=== PATIENT | male | born 1980 | race Caucasian/White ===

== ENCOUNTER → 2017-09-19 | Outpatient (CLI) | payer BC ==
--- NOTE | 2017-09-19 18:19 | US ---
EXAMINATION TYPE: US abd limited kidneys/bladder DATE OF EXAM: 09/19/2017 COMPARISON: CT dated 06/05/2012 CLINICAL HISTORY: N18.4 Chronic kidney disease, stage 4 (severe). Pt states abnormal renal labs EXAM MEASUREMENTS: Liver Length: 13.9 cm Gallbladder Wall: 0.2 cm CBD: 0.3 cm Right Kidney: 10.9 x 5.3 x 5.7 cm Left Kidney: 10.4 x 5.0 x 5.5 cm Pancreas: Obscured by bowel gas Liver: wnl Gallbladder: wnl CBD: wnl Right Kidney: wnl Left Kidney: wnl Bladder: wnl Bilateral Jets Seen Yes Incidental finding, spleen upper limits of normal for size There is no ascites. Cortical medullary differentiation is maintained within the kidneys. No hydronep hrosis, mass, or pathologic calcification. IMPRESSION: Borderline splenomegaly.
== END | disposition home or self-care (01) ==
LOC: RADUSWWP 15:37
PROVIDERS: ATTEND Family Medicine
DX: N18.4 Chronic kidney disease, stage 4 (severe) (principal)
CPT/HCPCS: 76705; 76770

== ENCOUNTER → 2019-06-12 | Outpatient (CLI) | payer BC ==
--- NOTE | 2019-06-12 13:48 | CT ---
EXAMINATION TYPE: CT hand LT wo con DATE OF EXAM: 06/12/2019 COMPARISON: None HISTORY: Pain Lt Thumb CT DLP: 158.[address] of the left hand with reconstruction imaging. TECHNIQUE: Unenhanced CT of the left hand was performed with bone and soft tissue window settings sub mitted in the axial coronal and sagittal planes. At a separate workstation [id number] TR imaging was obtain ed. FINDINGS: I do not see evidence for fracture or dislocation. Joint spaces appear to be well preserved . There is no evidence for radiopaque foreign body. No bony destructive process is identified. No ero sive changes appreciated. IMPRESSION: 1. No evidence for fracture or dislocation.
== END | disposition home or self-care (01) ==
LOC: RADCTMAIN 13:11
PROVIDERS: ATTEND Family Medicine
DX: S63.602A Unspecified sprain of left thumb, initial encounter (principal)

== ENCOUNTER → 2020-01-27 | Outpatient (CLI) | payer BC ==
--- NOTE | 2020-01-27 11:22 | CT ---
EXAMINATION TYPE: CT sinus wo con DATE OF EXAM: 01/27/2020 COMPARISON: None HISTORY: Acute sinusitis, left side facial swelling CT DLP: 669 mGycm. Automated Exposure Control for Dose Reduction was Utilized. TECHNIQUE: CT scan of the sinuses is performed without contrast, axial images are obtained, coronal r eformatted images are also reviewed. FINDINGS: The paranasal sinuses show mucoperiosteal thickening in the maxillary sinuses bilaterally, punctate ossification present in the left maxillary sinus. The ostiomeatal complex is patent bilate rally on the coronal images. Delia bullosa present bilaterally. Visualized portion of mastoid air cells show no abnormal opacification. The globes are intact bilate rally, soft tissue swelling is noted in the preseptal location on the left. There is lucency within the right mandible posteriorly consistent with periapical abscess, periapical abscess also noted at f rontal maxilla on the left and on the right as well as more anteriorly on the right. IMPRESSION: Findings consistent with chronic sinusitis. Extensive dental decay. Swelling over the lef t orbit, consider cellulitis.
== END | disposition home or self-care (01) ==
LOC: RADCTMAIN 10:54
PROVIDERS: ATTEND Family Medicine
DX: J01.90 Acute sinusitis, unspecified (principal); K02.9 Dental caries, unspecified; H05.222 Edema of left orbit
CPT/HCPCS: 70486

== ENCOUNTER 2020-11-24 20:19 | Inpatient (IN) | payer BC ==
[2020-11-24] MEDS ORDERED: ONDANSETRON 4 MG/2 ML VIAL IVP STA (21:03)
[2020-11-24] MEDS ORDERED: MORPHINE SULFATE 4 MG/ML SYRINGE IV STA (21:03)
[2020-11-24] MEDS ORDERED: KETOROLAC 15 MG/ML 1 ML VIAL IVP STA (21:03)
[2020-11-24] MEDS ORDERED: SODIUM CHLORIDE 0.9% 1,000 ML IV STA (21:03)
--- NOTE | 2020-11-24 21:34 | XR ---
EXAMINATION TYPE: XR KUB DATE OF EXAM: 11/24/2020 9:27 PM CLINICAL HISTORY: Right flank pain TECHNIQUE: 2 upright views COMPARISON: 06/05/2012 FINDINGS: Scattered gas is seen in non-distended small bowel loops. Gas and fecal material is seen in non-distended colon. There is no visceromegaly, pneumoperitoneum, or abnormal calcification apprecia kim. The lung bases are clear and the osseous structures are intact. IMPRESSION: No acute radiographic process.
[2020-11-24 21:41] LABS: Basophils % (A) 0 %; Eosinophils # (A) 0.2 k/uL (0-0.7); Eosinophils % (A) 1 %; HCT 44.3 % (39.0-53.0); HGB 15.9 gm/dL (13.0-17.5); Lymphocytes % (A) 9 %; MCHC 35.8 g/dL (31.0-37.0); MCV 89.3 fL (80.0-100.0); Mean Platelet Volume 7.2; Monocytes # (A) 0.5 k/uL (0-1.0); Monocytes % (A) 5 %; Neutrophils # (A) 9.1 k/uL (1.3-7.7); Neutrophils % (A) 84 %; Platelet Count 204 k/uL (150-450); RBC 4.97 m/uL (4.30-5.90); RDW 12.3 % (11.5-15.5); WBC 10.8 k/uL (3.8-10.6)
[2020-11-24 21:46] LABS: Partial Thromboplastin Time 22.3 sec (22.0-30.0); Prothrombin Time 10.5 sec (9.0-12.0)
[2020-11-24 21:47] LABS: Albumin 4.5 g/dL (3.5-5.0); Total Bilirubin 0.5 mg/dL (0.2-1.3); Total Protein 7.3 g/dL (6.3-8.2)
--- NOTE | 2020-11-24 21:49 | ED ---
General Adult HPI - General Chief complaint: Abdominal Pain Stated complaint: Flank Pain Time Seen by Provider: 11/24/20 20:42 Source: patient, RN notes reviewed, old records reviewed Mode of arrival: ambulatory Limitations: no limitations - History of Present Illness Initial comments: 40-year-old male presenting with sudden onset right flank pain and upper abdominal pain. Patient had been working outside and initially thought this was musculoskeletal however it did not feel like his usual back pain. She states that over the past one week he's had some urinary frequency and urgency. No fever. He did vomit once at home after the onset of pain. No previous history of kidney stones. No chest pain. No scrotal pain. - Related Data Allergies Allergy/AdvReac Type Severity Reaction Status Date / Time shellfish derived Allergy Rash/Hives Verified 11/24/20 20:31 Review of Systems ROS Statement: Those systems with pertinent positive or pertinent negative responses have been documented in the HPI. ROS Other: All systems not noted in ROS Statement are negative. Past Medical History Past Medical History: No Reported History History of Any Multi-Drug Resistant Organisms: None Reported Past Surgical History: Orthopedic Surgery Smoking Status: Never smoker Past Alcohol Use History: None Reported Past Drug Use History: None Reported General Exam Limitations: no limitations General appearance: alert, in distress Head exam: Present: atraumatic, normocephalic Eye exam: Present: normal appearance, PERRL ENT exam: Present: normal exam Neck exam: Present: normal inspection. Absent: tenderness, meningismus Respiratory exam: Present: normal lung sounds bilaterally. Absent: respiratory distress, wheezes Cardiovascular Exam: Present: regular rate, normal rhythm GI/Abdominal exam: Present: soft, tenderness. Absent: distended, guarding, rebound Extremities exam: Present: normal inspection, normal capillary refill. Absent: pedal edema Back exam: Present: CVA tenderness (R) Neurological exam: Present: alert, oriented X3 Psychiatric exam: Present: normal affect, normal mood Skin exam: Present: warm, dry, intact. Absent: cyanosis, diaphoretic Course Vital Signs 11/24/20 20:29 Temperature 98.8 F Pulse Rate 96 Respiratory 18 Rate Blood Pressure 155/75 O2 Sat by Pulse 98 Oximetry Medical Decision Making - Medical Decision Making 48-year-old male presenting with sudden onset right-sided flank pain and right upper abdominal pain. History is concerning for renal colic. X-ray performed negative for radiopaque stone or acute findings. CT showing a obstructing renal calculus in the right UVJ with hydronephrosis. This is approximately 2 mm. Patient has a mild leukocytosis likely reactive. He has a creatinine of 1.65 with no baseline for comparison. Urinalysis shows greater than 182 red cells there is rare bacteria and urine culture has been obtained. Additionally patient receives multiple doses of pain medication within the emergency department with persistent severe pain. He will be admitted for pain control and hydration. I discussed case with Dr. العراقي, covering for urology. The patient will be admitted to internal medicine with urology on consult. - Lab Data Result diagrams: 11/24/20 21:11/24/20 21:21 Lab Results 11/24/20 11/24/20 11/24/20 Range/Units 21:21 21:21 21:21 WBC 10.8 H (3.8-10.6) k/uL RBC 4.97 (4.30-5.90) m/uL Hgb 15.9 (13.0-17.5) gm/dL Hct 44.3 (39.0-53.0) % MCV 89.3 (80.0-100.0) fL MCH 32.0 (25.0-35.0) pg MCHC 35.8 (31.0-37.0) g/dL RDW 12.3 (11.5-15.5) % Plt Count 204 (150-450) k/uL MPV 7.2 Neutrophils % 84 % Lymphocytes % 9 % Monocytes % 5 % Eosinophils % 1 % Basophils % 0 % Neutrophils # 9.1 H (1.3-7.7) k/uL Lymphocytes # 1.0 (1.0-4.8) k/uL Monocytes # 0.5 (0-1.0) k/uL Eosinophils # 0.2 (0-0.7) k/uL Basophils # 0.0 (0-0.2) k/uL PT 10.5 (9.0-12.0) sec INR 1.0 (<1.2) APTT 22.3 (22.0-30.0) sec Sodium (137-145) mmol/L Potassium (3.5-5.1) mmol/L Chloride (98-107) mmol/L Carbon Dioxide (22-30) mmol/L Anion Gap mmol/L BUN (9-20) mg/dL Creatinine (0.66-1.25) mg/dL Est GFR (CKD-EPI)AfAm (>60 ml/min/1.73 sqM) Est GFR (CKD-EPI)NonAf (>60 ml/min/1.73 sqM) Glucose (74-99) mg/dL Plasma Lactic Acid Zachery (0.7-2.0) mmol/L Calcium (8.4-10.2) mg/dL Total Bilirubin (0.2-1.3) mg/dL AST (17-59) U/L ALT (4-49) U/L Alkaline Phosphatase (38-126) U/L Total Protein (6.3-8.2) g/dL Albumin (3.5-5.0) g/dL Amylase (30-110) U/L Lipase (23-300) U/L Urine Color Light Red Urine Appearance Cloudy (Clear) Urine pH 6.5 (5.0-8.0) Ur Specific [place] 1.030 (1.001-1.035) Urine Protein 1+ H (Negative) Urine Glucose (UA) Negative (Negative) Urine Ketones 1+ H (Negative) Urine Blood Large H (Negative) Urine Nitrite Negative (Negative) Urine Bilirubin Negative (Negative) Urine Urobilinogen 2.0 (<2.0) mg/dL Ur Leukocyte Esterase Trace H (Negative) Urine RBC >182 H (0-5) /hpf Urine WBC 13 H (0-5) /hpf Urine Bacteria Rare H (None) /hpf Hyaline Casts 4 H (0-2) /lpf Urine Mucus Moderate H (None) /hpf Urine Yeast (Budding) Occasional H (None) /hpf 11/24/20 11/24/20 Range/Units 21:21 21:21 WBC (3.8-10.6) k/uL RBC (4.30-5.90) m/uL Hgb (13.0-17.5) gm/dL Hct (39.0-53.0) % MCV (80.0-100.0) fL MCH (25.0-35.0) pg MCHC (31.0-37.0) g/dL RDW (11.5-15.5) % Plt Count (150-450) k/uL MPV Neutrophils % % Lymphocytes % % Monocytes % % Eosinophils % % Basophils % % Neutrophils # (1.3-7.7) k/uL Lymphocytes # (1.0-4.8) k/uL Monocytes # (0-1.0) k/uL Eosinophils # (0-0.7) k/uL Basophils # (0-0.2) k/uL PT (9.0-12.0) sec INR (<1.2) APTT (22.0-30.0) sec Sodium 139 (137-145) mmol/L Potassium 4.0 (3.5-5.1) mmol/L Chloride 103 (98-107) mmol/L Carbon Dioxide 24 (22-30) mmol/L Anion Gap 12 mmol/L BUN 16 (9-20) mg/dL Creatinine 1.65 H (0.66-1.25) mg/dL Est GFR (CKD-EPI)AfAm 59 (>60 ml/min/1.73 sqM) Est GFR (CKD-EPI)NonAf 51 (>60 ml/min/1.73 sqM) Glucose 105 H (74-99) mg/dL Plasma Lactic Acid Zachery 3.3 H* (0.7-2.0) mmol/L Calcium 10.0 (8.4-10.2) mg/dL Total Bilirubin 0.5 (0.2-1.3) mg/dL AST 39 (17-59) U/L ALT 39 (4-49) U/L Alkaline Phosphatase 83 (38-126) U/L Total Protein 7.3 (6.3-8.2) g/dL Albumin 4.5 (3.5-5.0) g/dL Amylase 58 (30-110) U/L Lipase 101 (23-300) U/L Urine Color Urine Appearance (Clear) Urine pH (5.0-8.0) Ur Specific [place] (1.001-1.035) Urine Protein (Negative) Urine Glucose (UA) (Negative) Urine Ketones (Negative) Urine Blood (Negative) Urine Nitrite (Negative) Urine Bilirubin (Negative) Urine Urobilinogen (<2.0) mg/dL Ur Leukocyte Esterase (Negative) Urine RBC (0-5) /hpf Urine WBC (0-5) /hpf Urine Bacteria (None) /hpf Hyaline Casts (0-2) /lpf Urine Mucus (None) /hpf Urine Yeast (Budding) (None) /hpf Disposition Clinical Impression: Calculus of kidney, TORIBIO (acute kidney injury), Hydronephrosis due to obstruction of ureter Disposition: ADMITTED IP TO THIS HOSP Condition: Stable Is patient prescribed a controlled substance at d/c from ED?: No Referrals: Morenita Booker DO [Primary Care Provider] - 1-2 days Decision to Admit Reason: Admit from EC Decision Date: 11/24/20 Decision Time: 22:43
[2020-11-24 21:52] LABS: Appearance,Urine Cloudy (Clear); Bacteria,Urine Rare /hpf; Bilirubin,Urine Negative (Negative); Blood,Urine Large (Negative); Budding Yeast,Urine Occasional /hpf; Color,Urine Light Red; Glucose,Urine (UA) Negative (Negative); Hyaline Casts,Urine 4 /lpf (0-2); Ketones,Urine 1+ (Negative); Leukocyte Esterase,Urine Trace (Negative); Mucus,Urine Moderate /hpf; Nitrite,Urine Negative (Negative); PH, Urine 6.5 (5.0-8.0); Protein,Urine 1+ (Negative); RBC,Urine >182 /hpf (0-5); WBC,Urine 13 /hpf (0-5)
[2020-11-24] MEDS ORDERED: SODIUM CHLORIDE 0.9% 1,000 ML IV ONE (22:09)
[2020-11-24] MEDS ORDERED: MORPHINE SULFATE 4 MG/ML SYRINGE IVP STA (22:15)
--- NOTE | 2020-11-24 22:29 | CT ---
EXAMINATION TYPE: CT abdomen pelvis wo con DATE OF EXAM: 11/24/2020 COMPARISON: 06/05/2012 HISTORY: Abdomial pain, Rt flank pain CT DLP: 910.10 mGycm Automated exposure control for dose reduction was used. Exam without contrast from the diaphragm to the floor the pelvis. FINDINGS: The lung bases are clear. There is no pleural effusion. Heart size is normal. There is no pericardial effusion. Liver spleen stomach pancreas gallbladder appear normal. The bile ducts are not dilated. There is no adrenal mass. Kidneys have normal size. There is right-sided hydronephrosis and hydrouret er. There is some tubing millimeter calculus distal right ureter at the ureterovesical junction. Ther e is no retroperitoneal adenopathy. Bladder distends smoothly. There is no evidence of pelvic mass. A ppendix is posterior and appears normal. Cecum is medial. There is no mesenteric edema. There is no ascites or free air. There is no bowel obstruction. There i s no inguinal hernia. The lumbar vertebra have normal alignment. There is no compression fracture. Facet joints are intact. Hip joints are intact. IMPRESSION: There is small obstructing calculus at the right ureterovesical junction with right-sided hydronephro sis and hydroureter. No other calculus. Obstruction is new compared to old exam. Normal appendix.
[2020-11-24] MEDS ORDERED: HYDROmorphone 0.5 MG/0.5 ML SYRINGE IVP STA (22:33)
[2020-11-24] MEDS ORDERED: NALOXONE 0.4 MG/ML 1 ML VIAL IV PRN (22:39)
[2020-11-24] MEDS ORDERED: HYDROmorphone 0.5 MG/0.5 ML SYRINGE IVP PRN (22:39)
[2020-11-24] MEDS ORDERED: ACETAMINOPHEN TAB 325 MG TAB PO PRN (22:39)
[2020-11-24] MEDS ORDERED: ONDANSETRON 4 MG/2 ML VIAL IVP PRN (22:39)
[2020-11-24] MEDS ORDERED: TAMSULOSIN 0.4 MG CAP.ER.24H PO STA (22:43)
[2020-11-24] MEDS ORDERED: cefTRIAXone IN SWFI 1,000 MG/10 ML SYRINGE IVP STA (22:45)
[2020-11-24] MEDS: SODIUM CHLORIDE 0.9% 1,000 ML IV SCH (23:40)
[2020-11-25] MEDS: HYDROmorphone 1 MG/ML 1 ML SYRINGE IVP PRN ×4 (01:22→12:24)
[2020-11-25 06:25] LABS: Basophils # (A) 0.1 k/uL (0-0.2); Basophils % (A) 1 %; Eosinophils # (A) 0.1 k/uL (0-0.7); Eosinophils % (A) 1 %; HCT 40.7 % (39.0-53.0); HGB 14.4 gm/dL (13.0-17.5); Lymphocytes # (A) 1.4 k/uL (1.0-4.8); Lymphocytes % (A) 15 %; MCH 32.4 pg (25.0-35.0); MCHC 35.3 g/dL (31.0-37.0); MCV 91.8 fL (80.0-100.0); Mean Platelet Volume 6.7; Monocytes # (A) 0.6 k/uL (0-1.0); Monocytes % (A) 6 %; Neutrophils % (A) 76 %; Platelet Count 164 k/uL (150-450); RBC 4.43 m/uL (4.30-5.90); RDW 12.6 % (11.5-15.5); WBC 9.3 k/uL (3.8-10.6)
[2020-11-25 06:46] LABS: Albumin 3.4 g/dL (3.5-5.0); Calcium 8.4 mg/dL (8.4-10.2); Potassium 4.4 mmol/L (3.5-5.1); Total Bilirubin 0.6 mg/dL (0.2-1.3); Total Protein 5.9 g/dL (6.3-8.2)
[2020-11-25 07:50] VITALS: BP 128/76; PULSE 66; RESP 18; TEMP 97.9
[2020-11-25] MEDS: SODIUM CHLORIDE 0.9% 1,000 ML IV SCH (12:28)
--- NOTE | 2020-11-25 12:46 | P.GSCN ---
History of Present Illness Consult date: 11/25/20 Reason for Consult: right flank pain History of present illness: 40 yo male presented to the ED with right sided flank pain associated with na usea. He underwent a CT which showed evidence of 2 mm stone at the right UVJ. Denies any dysuria or gross hematuria. No previous hx of stones. No family hx of stones. He indicated his pain has improved this am. Review of Systems - Constitutional Denies fever, Denies weight loss - Cardiovascular Denies chest pain, Denies shortness of breath - Respiratory Denies cough, Denies 7 - Gastrointestinal Reports as per HPI - Genitourinary Reports flank pain, Denies dysuria, Denies hematuria Past Medical History Past Medical History: Skin Disorder History of Any Multi-Drug Resistant Organisms: None Reported Past Surgical History: Orthopedic Surgery Additional Past Surgical History / Comment(s): bilat shoulders multiple times Past Anesthesia/Blood Transfusion Reactions: No Reported Reaction Past Psychological History: No Psychological Hx Reported Smoking Status: Former smoker Past Alcohol Use History: None Reported Past Drug Use History: None Reported Medications and Allergies Home Medications Medication Instructions Recorded Confirmed Type Apremilast [Otezla] 30 mg PO BID 11/24/20 11/24/20 History Acetaminophen-Codeine 300-30mg 1 tab PO Q6H PRN 3 Days #12 tablet 11/25/20 Rx [Tylenol w/codeine #3] Ketorolac [Toradol] 10 mg PO Q6HR PRN #15 tab 11/25/20 Rx Allergies Allergy/AdvReac Type Severity Reaction Status Date / Time shellfish derived Allergy Rash/Hives Verified 11/24/20 20:31 Surgical - Exam Vital Signs Temp Pulse Resp BP Pulse Ox 98.8 F 96 18 155/75 98 11/24/20 20:29 11/24/20 20:29 11/24/20 20:29 11/24/20 20:29 11/24/20 20:29 - General well developed, well nourished, no distress, moderate pain - Eyes PERRL, normal ocular movement - ENT normal nares, normal mucosa - Respiratory normal expansion, normal respiratory effort - Psychiatric oriented to time, oriented to person, oriented to place Results - Labs 11/25/20 05:35 11/25/20 05:35 Abnormal Lab Results - Last 24 Hours (Table) 11/24/20 11/24/2011/24/21 Range/Units 21:21 21:21 21:21 WBC 10.8 H (3.8-10.6) k/uL Neutrophils # 9.1 H (1.3-7.7) k/uL Creatinine 1.65 H (0.66-1.25) mg/dL Glucose 105 H (74-99) mg/dL Plasma Lactic Acid Zachery (0.7-2.0) mmol/L Total Protein (6.3-8.2) g/dL Albumin (3.5-5.0) g/dL Urine Protein 1+ H (Negative) Urine Ketones 1+ H (Negative) Urine Blood Large H (Negative) Ur Leukocyte Esterase Trace H (Negative) Urine RBC >182 H (0-5) /hpf Urine WBC 13 H (0-5) /hpf Urine Bacteria Rare H (None) /hpf Hyaline Casts 4 H (0-2) /lpf Urine Mucus Moderate H (None) /hpf Urine Yeast (Budding) Occasional H (None) /hpf 11/24/20 11/25/20 Range/Units 21:21 05:35 WBC (3.8-10.6) k/uL Neutrophils # (1.3-7.7) k/uL Creatinine 1.36 H (0.66-1.25) mg/dL Glucose (74-99) mg/dL Plasma Lactic Acid Zachery 3.3 H* (0.7-2.0) mmol/L Total Protein 5.9 L (6.3-8.2) g/dL Albumin 3.4 L (3.5-5.0) g/dL Urine Protein (Negative) Urine Ketones (Negative) Urine Blood (Negative) Ur Leukocyte Esterase (Negative) Urine RBC (0-5) /hpf Urine WBC (0-5) /hpf Urine Bacteria (None) /hpf Hyaline Casts (0-2) /lpf Urine Mucus (None) /hpf Urine Yeast (Budding) (None) /hpf Microbiology - Last 24 Hours (Table) 11/24/20 21:21 Urine Culture - Preliminary Urine,Voided Diabetes panel 11/24/20 11/25/20 Range/Units 21:21 05:35 Sodium 139 138 (137-145) mmol/L Potassium 4.0 4.4 (3.5-5.1) mmol/L Chloride 103 107 (98-107) mmol/L Carbon Dioxide 24 25 (22-30) mmol/L BUN 16 15 (9-20) mg/dL Creatinine 1.65 H 1.36 H (0.66-1.25) mg/dL Glucose 105 H 96 (74-99) mg/dL Calcium 10.0 8.4 (8.4-10.2) mg/dL AST 39 31 (17-59) U/L ALT 39 30 (4-49) U/L Alkaline Phosphatase 83 58 (38-126) U/L Total Protein 7.3 5.9 L (6.3-8.2) g/dL Albumin 4.5 3.4 L (3.5-5.0) g/dL Calcium panel 11/24/20 11/25/20 Range/Units 21:21 05:35 Calcium 10.0 8.4 (8.4-10.2) mg/dL Albumin 4.5 3.4 L (3.5-5.0) g/dL Pituitary panel 11/24/20 11/25/20 Range/Units 21:21 05:35 Sodium 139 138 (137-145) mmol/L Potassium 4.0 4.4 (3.5-5.1) mmol/L Chloride 103 107 (98-107) mmol/L Carbon Dioxide 24 25 (22-30) mmol/L BUN 16 15 (9-20) mg/dL Creatinine 1.65 H 1.36 H (0.66-1.25) mg/dL Glucose 105 H 96 (74-99) mg/dL Calcium 10.0 8.4 (8.4-10.2) mg/dL Adrenal panel 11/24/20 11/25/20 Range/Units 21:21 05:35 Sodium 139 138 (137-145) mmol/L Potassium 4.0 4.4 (3.5-5.1) mmol/L Chloride 103 107 (98-107) mmol/L Carbon Dioxide 24 25 (22-30) mmol/L BUN 16 15 (9-20) mg/dL Creatinine 1.65 H 1.36 H (0.66-1.25) mg/dL Glucose 105 H 96 (74-99) mg/dL Calcium 10.0 8.4 (8.4-10.2) mg/dL Total Bilirubin 0.5 0.6 (0.2-1.3) mg/dL AST 39 31 (17-59) U/L ALT 39 30 (4-49) U/L Alkaline Phosphatase 83 58 (38-126) U/L Total Protein 7.3 5.9 L (6.3-8.2) g/dL Albumin 4.5 3.4 L (3.5-5.0) g/dL Assessment and Plan Assessment: 40 yo male with hx of 2 mm right sided UVJ stone. UA negative. Symptoms improved this am. Discussed with him stone is fairly small measured 2 mm and distal, sponteonus passage has high success rate discussed with him option of URS too. At this time he wants a trial of spontaneous passage. Ok for discharge from urology standpoint, Will discharge with Toradol and Tylenol #3 . Can f/u in 1-2 weeks. He was advised to strain his urine
--- NOTE | 2020-11-25 19:05 | HP ---
HISTORY AND PHYSICAL I am covering for Dr. Booker. This is a combined history and physical and discharge summary. CHIEF COMPLAINTS: Abdominal pain and flank pain. HISTORY OF PRESENT ILLNESS: This 40-year-old gentleman with a past medical history of multiple medical problems, including orthopedic surgery, history of bilateral shoulder surgery, skin disorder, being followed by Dr. Booker in the outpatient setting, was admitted with sudden onset of right flank pain and upper abdominal pain. The pain was shooting down. The patient came to [facility] and was admitted for further evaluation and treatment. Evaluation showed white count is 10.8, lactic acid 3.3. UA shows mostly RBCs. COVID-[address] scan of the abdomen and pelvis was noted. Lactic acid normalized with IV fluids. CT scan showed a small obstructing calculus in the right ureterovesical junction with right-sided hydronephrosis and hydroureter. The patient was admitted for further evaluation. There was no history of any fever, rigor or chills. No history of headache, loss of consciousness, seizures. Urology has seen the patient and recommended outpatient followup. There was no history of trauma. PAST MEDICAL HISTORY: History of skin disorder, history of orthopedic surgery, history of smoking. HOME MEDICATIONS: Otezla, Toradol and Tylenol No.3. ALLERGIES: SHELLFISH. FAMILY HISTORY: No history of heart disease or strokes in the family. SOCIAL HISTORY: Previous history of smoking. REVIEW OF SYSTEMS: ENT: No diminished hearing. No diminished vision. CARDIOVASCULAR SYSTEM: No angina, palpitations. RESPIRATORY SYSTEM: No cough, hemoptysis. GI: No nausea, vomiting, diarrhea. : No dysuria or retention. NERVOUS SYSTEM: No numbness, weakness. ALLERGY/IMMUNOLOGY: No asthma, hayfever. MUSCULOSKELETAL: As mentioned earlier. HEMATOLOGY/ONCOLOGY: No history of anemia. ENDOCRINE: No history of diabetes, hypothyroidism. CONSTITUTIONAL: As mentioned earlier. DERMATOLOGY: Negative. RHEUMATOLOGY: Negative. PSYCHIATRY: As mentioned earlier. PHYSICAL EXAMINATION: Patient alert and oriented x3. Pulse 66, blood pressure 128/76, respiration 18, temperature 97.9, pulse ox 94% on room air. HEENT: Conjunctivae normal. NECK: No jugular venous distention. CARDIOVASCULAR SYSTEM: S1, S2 muffled. RESPIRATORY SYSTEM: Breath sounds diminished at the bases. No rhonchi. No crackles. ABDOMEN: Soft, obese. Tenderness on the right side of the abdomen. No guarding or rigidity. No mass palpable. LEGS: No edema. No swelling. NERVOUS SYSTEM: Higher functions as mentioned earlier. Moves all 4 limbs. No focal motor or sensory deficit. LYMPHATICS: No lymph node palpable in neck, axillae or groin. SKIN: No ulcer, rash, bleeding. JOINTS: No active deforming arthropathy. LABS: WBC 10.8, hemoglobin 15.9. Sodium 139, creatinine is 1.65 and 1.36. UA noted. ASSESSMENT: 1. Abdominal pain, right-sided, with urolithiasis. 2. Small obstructing calculus in the right ureterovesical junction with right- sided hydronephrosis and hydroureter. 3. Possible mild acute renal failure with obstructive uropathy. 4. Mild hydronephrosis on the right side. 5. Elevated plasma lactic acid, improved. 6. Increased white count, improved. 7. History of degenerative joint disease. 8. History of nicotine dependence. 9. Obesity with body mass index of 32.1. 10.FULL CODE. RECOMMENDATIONS AND DISCUSSION: In this 40-year-old gentleman who presented with multiple complex medical issues, I would recommend to continue current medications, continue symptomatic treatment. Continue with the Flomax. Continue with IV fluids and monitor CBC, BMP in the outpatient setting. Urine culture has been sent; final report to be forwarded to Dr. Booker's office in the outpatient setting. Discussed with the patient. Rest of the recommendations per Urology. Urology has discharged the patient currently, and further recommendations to follow. See orders for further details. Discussed with the patient. Resume the home medications at home. MMODL / IJN: [id number] / MTDD
== END 2020-11-25 15:39 | disposition home or self-care (01) | DRG 694 ==
LOC: EC 20:19 → 4SSUR 22:41
PROVIDERS: ADMIT Hospitalist; ATTEND Hospitalist
DX: N13.2 Hydronephrosis with renal and ureteral calculous obstruction (principal); E87.2 Acidosis; D72.829 Elevated white blood cell count, unspecified; E66.9 Obesity, unspecified; N17.9 Acute kidney failure, unspecified; Z20.822 Contact with and (suspected) exposure to COVID-19; Z68.32 Body mass index [BMI] 32.0-32.9, adult; Z87.442 Personal history of urinary calculi; Z87.891 Personal history of nicotine dependence; M19.90 Unspecified osteoarthritis, unspecified site; Z91.013 Allergy to seafood
CPT/HCPCS: 36415; 74018; 74176; 80053; 81001; 82150; 83605; 83690; 85025; 85610; 85730; 87086; 87635; 96361; 96374; 96375; 99285

== ENCOUNTER 2023-03-06 12:45 | Emergency (ER) | payer BC ==
[2023-03-06 12:51] VITALS: BP 156/93; PULSE 89; RESP 18; TEMP 98.2
[2023-03-06 12:52] LABS: Glucose,Whole Blood 141 mg/dL (70-110)
--- NOTE | 2023-03-06 12:54 | ED ---
General Adult HPI - General Chief complaint: Recheck/Abnormal Lab/Rx Stated complaint: HTN Time Seen by Provider: 03/06/23 12:49 - History of Present Illness Initial comments: Patient is a 42 year old male presenting to the ER with complaints of generalized unwell feeling that is getting progressively worse throughout the day today. He reports feeling tingling and jittery in all his extremities but denies any pain including chest or abdominal pain. He denies any shortness of breath, nausea or vomiting. His blood pressure is elevated in triage and he denies any known history of HTN. - Related Data Home Medications Medication Instructions Recorded Confirmed Apremilast [Otezla] 30 mg PO BID 11/24/20 11/24/20 Previous Rx's Medication Instructions Recorded Acetaminophen-Codeine 300-30mg 1 tab PO Q6H PRN 3 Days #12 tablet 11/25/20 [Tylenol w/codeine #3] Ketorolac [Toradol] 10 mg PO Q6HR PRN #15 tab 11/25/20 Tamsulosin [Flomax] 0.4 mg PO DAILY 30 Days #30 cap 11/25/20 Allergies Allergy/AdvReac Type Severity Reaction Status Date / Time shellfish derived Allergy Rash/Hives Verified 03/06/23 12:51 Review of Systems ROS Statement: Those systems with pertinent positive or pertinent negative responses have been documented in the HPI. ROS Other: All systems not noted in ROS Statement are negative. Past Medical History Past Medical History: Skin Disorder History of Any Multi-Drug Resistant Organisms: None Reported Past Surgical History: Orthopedic Surgery Additional Past Surgical History / Comment(s): bilat shoulders multiple times Past Anesthesia/Blood Transfusion Reactions: No Reported Reaction Past Psychological History: No Psychological Hx Reported Smoking Status: Former smoker Past Alcohol Use History: None Reported Past Drug Use History: None Reported General Exam - General Exam Comments Initial Comments: Visual Physical Exam Vital signs reviewed General: Well-appearing, nontoxic, no acute distress. Head: Normocephalic, atraumatic Eyes: PERRLA, EOMI ENT: Airway patent Chest: Nonlabored breathing Skin: No visual rash, normal skin tone Neuro: Alert and oriented 3 Musculoskeletal: No gross abnormalities I performed the Quicknote portion of this note signed Carla Maya GRID OPERATOR-c Course Vital Signs 03/06/23 12:48 Temperature 98.2 F Pulse Rate 89 Respiratory 18 Rate Blood Pressure 156/93 O2 Sat by Pulse 99 Oximetry Medical Decision Making - Medical Decision Making Patient eloped without further evaluation diagnostic imaging, laboratory studies or medication administration. Dr. Potts advised to patient elopement. - Lab Data Lab Results 03/06/23 Range/Units 12:51 POC Glucose (mg/dL) 141 H (70-110) mg/dL POC Glu It Technical Support Specialist ID Sylvia Montesinos Disposition Clinical Impression: HTN (hypertension) Disposition: LEFT AGAINST MEDICAL ADVICE Condition: Undetermined Is patient prescribed a controlled substance at d/c from ED?: No Referrals: Morenita Booker DO [Primary Care Provider] - 1-2 days Time of Disposition: 15:13
== END 2023-03-06 13:03 | disposition left against medical advice (07) ==
LOC: EC 12:45
DX: I10 Essential (primary) hypertension (principal); Z87.891 Personal history of nicotine dependence; Z53.29 Procedure and treatment not carried out because of patient's decision for other reasons
CPT/HCPCS: 36415; 99283